=== PATIENT | female | born 1970 | race Caucasian/White ===

== ENCOUNTER 2023-03-03 22:50 | Emergency (ER) | payer SELFPAY ==
[~2023-03-03] VITALS: Ht 160 cm; Wt 60.3 kg
[2023-03-03 23:16] LABS: BASOPHILS # (AUTO) 0.1 K/uL (0.0-0.2); BASOPHILS % (AUTO) 0.7 % (0.0-2.0); EOSINOPHILS # (AUTO) 0.3 K/uL (0.0-0.7); EOSINOPHILS % (AUTO) 3.1 % (0.0-6.0); HEMATOCRIT 41 % (33-45); HEMOGLOBIN 13.5 g/dL (11.5-14.8); LYMPHOCYTES # (AUTO) 2.7 K/uL (0.8-4.8); LYMPHOCYTES % (AUTO) 32.6 % (20.0-44.0); MEAN CORPUSCULAR HEMOGLOBIN 30 PG (26.0-33.0); MEAN CORPUSCULAR HGB CONC 33 g/dl (31.0-36.0); MEAN CORPUSCULAR VOLUME 91 fL (82-100); MONOCYTES # (AUTO) 0.6 K/uL (0.1-1.30); MONOCYTES % (AUTO) 7.4 % (2.0-12.0); NEUTROPHILS # (AUTO) 4.6 K/uL (1.8-8.9); NEUTROPHILS % (AUTO) 56.2 % (43.0-81.0); PLATELET COUNT (AUTO) 351 K/uL (150-450); RED BLOOD CELL COUNT(AUTO) 4.53 MIL/uL (4.0-5.2); RED CELL DISTRIBUTION WIDTH 13.2 % (11.5-15.0); WHITE BLOOD COUNT (AUTO) 8.3 K/uL (4.3-11.0)
[2023-03-03 23:27] LABS: CALCIUM, SERUM 10.2 mg/dL (8.5-10.1); CARBON DIOXIDE 27 mmol/L (21-32); CHLORIDE 103 mmol/L (98-107); CREATININE 0.7 mg/dL (0.6-1.3); GLUCOSE 126 mg/dL (74-106); POTASSIUM 4.2 mmol/L (3.5-5.1); SODIUM SERUM 140 mmol/L (136-145); UREA NITROGEN, BLOOD 18 mg/dL (7-18)
[2023-03-04 00:59] VITALS: BP 148/85; TEMP 98; O2SAT 98
[2023-03-04] MEDS ORDERED: IBUP-1953 PO (07:14)
[2023-03-04] MEDS ORDERED: FAMO20TA8 PO (07:14)
[2023-03-04] MEDS ORDERED: ONDA4TAB5 PO (07:14)
== END 2023-03-04 00:59 | disposition home or self-care (01) ==
LOC: ER 22:52
DX: I10 Essential (primary) hypertension (principal); R00.2 Palpitations; F41.9 Anxiety disorder, unspecified
CPT/HCPCS: 36415; 71045-TC; 80048-TC; 84484-TC; 85025-TC

== ENCOUNTER 2023-03-04 06:23 | Emergency (ER) | payer SELFPAY ==
[~2023-03-04] VITALS: Ht 160 cm; Wt 65.8 kg
[2023-03-04 06:23] VITALS: BP 143/90; TEMP 98.1; O2SAT 98
[2023-03-04] MEDS ORDERED: ONDA4TAB5 PO (07:14)
[2023-03-04] MEDS ORDERED: FAMO20TA8 PO (07:14)
[2023-03-04] MEDS ORDERED: IBUP-1953 PO (07:14)
[2023-03-04] MEDS ORDERED: FAMOTIDINE (20 MG) 20 MG TABLET ONE (07:28)
[2023-03-04] MEDS ORDERED: IBUPROFEN 600 MG TABLET ONE (07:28)
[2023-03-04] MEDS ORDERED: MAG HYDROX/AL HYDROX/SIMETH 30 ML UDC ONE (07:28)
[2023-03-04] MEDS ORDERED: ONDANSETRON 4 MG TAB.RAPDIS ONE (07:28)
[2023-03-04] MEDS ORDERED: IBUPROFEN 600 MG TABLET PO ONE (07:30)
[2023-03-04] MEDS ORDERED: FAMOTIDINE (20 MG) 20 MG TABLET PO ONE (07:30)
[2023-03-04] MEDS ORDERED: MAG HYDROX/AL HYDROX/SIMETH 30 ML UDC PO ONE (07:30)
[2023-03-04] MEDS ORDERED: ONDANSETRON 4 MG TAB.RAPDIS SL ONE (07:30)
== END 2023-03-04 07:49 | disposition home or self-care (01) ==
LOC: ER 06:23
DX: R07.89 Other chest pain (principal); F41.9 Anxiety disorder, unspecified
CPT/HCPCS: 99284; Q0162

== ENCOUNTER 2023-05-13 19:30 | Emergency (ER) | payer MEDICAID ==
[~2023-05-13] VITALS: Ht 154.9 cm; Wt 57.6 kg
[~2023-05-13 19:30] MED LIST: FAMO20TA8 PO; IBUP-1953 PO; ONDA4TAB5 PO
[2023-05-13 20:54] LABS: BASOPHILS # (AUTO) 0.1 K/uL (0.0-0.2); BASOPHILS % (AUTO) 0.7 % (0.0-2.0); EOSINOPHILS # (AUTO) 0.2 K/uL (0.0-0.7); EOSINOPHILS % (AUTO) 2.6 % (0.0-6.0); HEMATOCRIT 38 % (33-45); HEMOGLOBIN 12.7 g/dL (11.5-14.8); LYMPHOCYTES # (AUTO) 2.6 K/uL (0.8-4.8); LYMPHOCYTES % (AUTO) 36.5 % (20.0-44.0); MEAN CORPUSCULAR HEMOGLOBIN 30 PG (26.0-33.0); MEAN CORPUSCULAR HGB CONC 33 g/dl (31.0-36.0); MEAN CORPUSCULAR VOLUME 89 fL (82-100); MONOCYTES # (AUTO) 0.5 K/uL (0.1-1.30); MONOCYTES % (AUTO) 6.7 % (2.0-12.0); NEUTROPHILS # (AUTO) 3.8 K/uL (1.8-8.9); NEUTROPHILS % (AUTO) 53.5 % (43.0-81.0); PLATELET COUNT (AUTO) 367 K/uL (150-450); RED CELL DISTRIBUTION WIDTH 13.5 % (11.5-15.0); WHITE BLOOD COUNT (AUTO) 7.1 K/uL (4.3-11.0)
[2023-05-13 21:26] LABS: CALCIUM, SERUM 9.7 mg/dL (8.5-10.1); CARBON DIOXIDE 23 mmol/L (21-32); CHLORIDE 105 mmol/L (98-107); CREATININE 0.6 mg/dL (0.6-1.3); GLUCOSE 103 mg/dL (74-106); POTASSIUM 3.5 mmol/L (3.5-5.1); SODIUM SERUM 141 mmol/L (136-145); UREA NITROGEN, BLOOD 12 mg/dL (7-18)
[2023-05-13] MEDS ORDERED: PANTOPRAZOLE 40 MG VIAL IV ONE (21:30)
[2023-05-13] MEDS ORDERED: MAG HYDROX/AL HYDROX/SIMETH 30 ML UDC PO ONE (21:30)
[2023-05-13] MEDS ORDERED: LIDOCAINE VISCOUS 2% UD 15 ML UDC MM ONE (21:30)
[2023-05-13] MEDS ORDERED: PANTOPRAZOLE 40 MG VIAL ONE (21:41)
[2023-05-13 22:54] VITALS: BP 133/78; TEMP 97.8; O2SAT 97
== END 2023-05-13 22:54 | disposition home or self-care (01) ==
LOC: ER 19:36
DX: K29.70 Gastritis, unspecified, without bleeding (principal); R07.89 Other chest pain; F41.9 Anxiety disorder, unspecified; Z79.899 Other long term (current) drug therapy
CPT/HCPCS: 36415; 71045-TC; 80048-TC; 84484-TC; 85025-TC; C9113

== ENCOUNTER 2023-10-01 23:44 | Emergency (ER) | payer MEDICAID ==
[~2023-10-01] VITALS: Ht 160 cm; Wt 65.8 kg
[2023-10-01 23:50] VITALS: TEMP 98
[2023-10-02 01:33] VITALS: BP 128/88; O2SAT 99
== END 2023-10-02 01:33 | disposition home or self-care (01) ==
LOC: ER 23:47
DX: I10 Essential (primary) hypertension (principal); F41.9 Anxiety disorder, unspecified